=== PATIENT | female | born 1950 | race Caucasian/White ===

== ENCOUNTER → 2016-07-07 | Outpatient (CLI) | payer MEDICARE, MEDICAID | LOC: BFHH 14:20 | PROVIDERS: ATTEND Family Medicine | DX: E11.42 Type 2 diabetes mellitus with diabetic polyneuropathy (principal) ==

== ENCOUNTER → 2016-08-17 | Outpatient (CLI) | payer MEDICARE, MEDICAID ==
--- NOTE | 2016-08-17 10:14 | CT ---
EXAM DESCRIPTION: Chest w/Contrast CLINICAL HISTORY: 66 years Female, MALIGNANT NEOPLASM PYLORIC ATRIUM TECHNIQUE: After the administration of IV contrast thin slice imaging was performed of the abdomen and pelvis. FINDINGS: The liver, gallbladder, portal vein are unremarkable. The spleen is at the upper limits of normal measuring 12.6 cm in diameter. Bilateral adrenal glands, bilateral kidneys and the pancreas are unremarkable. There is an epigastric anterior abdominal wall hernia noted which contains a loop of small bowel. No evidence of obstruction. There is a fat-containing umbilical hernia noted. Patient is status post hysterectomy. IMPRESSION: 2 midline abdominal wall hernias. The most cephalad midline abdominal wall hernia contains a single loop of bowel. There is no evidence of obstruction on today's study. No lymphadenopathy noted on today's exam to suggest metastatic disease of the abdomen or pelvis. Please see separately dictated CT of the chest for information above the diaphragm. Electronically signed by: Saman Geller MD 08/17/2016 10:12 AM CDT
--- NOTE | 2016-08-18 11:34 | CT ---
EXAM DESCRIPTION: Abdomen/Pelvis w/wo Contrast CLINICAL HISTORY: 66 years,Female,MALIGNANT NEOPLASM PYLORIC ATRIUM COMPARISON: None TECHNIQUE: Multiple axial tomographic images were obtained of the abdomen and pelvis with and without IV contrast and no oral contrast. Then reconstructed in sagittal and coronal planes. FINDINGS: The kidneys are unremarkable The adrenal glands are unremarkable. The spleen is unremarkable. The liver is unremarkable. The pancreas is unremarkable. The gallbladder is unremarkable. The included bowel is demonstrates a resection of the distal stomach. Another anastomosis in the left abdomen of small bowel. And there is a midline abdominal wall hernia just above the umbilicus containing loops of small bowel but nonobstructing at this time. The opening is about 3.7 cm. There is no free air, free fluid, masses, or significant adenopathy. Surrounding soft tissues and bony elements unremarkable. Uterus and ovaries not seen presumed to be surgically absent and or atrophic. IMPRESSION: Midline anterior abdominal wall hernia supraumbilical containing loops of small bowel but nonobstructive at this time. Prior antrectomy. Electronically signed by: Jessee Kong MD 08/18/2016 11:33 AM CDT
== END | disposition home or self-care (01) ==
LOC: CT 08:44
PROVIDERS: ATTEND Internal Medicine Hematology & Oncology
DX: C16.3 Malignant neoplasm of pyloric antrum (principal)

== ENCOUNTER → 2016-09-14 | Outpatient (CLI) | payer MEDICARE ==
--- NOTE | 2016-09-14 12:27 | RAD ---
EXAM DESCRIPTION: Pelvis CLINICAL HISTORY: 66 years Female, RT HIP PAIN IMPRESSION: Single view of the pelvis reveals mild degenerative change of the left hip. The pelvic ring is intact with no evidence of a definitive fracture. Arcuate lines are intact. Electronically signed by: Saman Geller MD 09/14/2016 12:27 PM CDT
--- NOTE | 2016-09-14 12:31 | RAD ---
EXAM DESCRIPTION: Knee,Right Complete CLINICAL HISTORY: 66 years, Female, RT KNEE PAIN COMPARISON: None. FINDINGS: No fracture. Medial joint compartment completely lost with sclerosis and subchondral cystic changes. Slight lateral subluxation of the femur probably related to severe degenerative changes. Patellofemoral joint space narrowed with spurring. Bones appear mildly demineralized. IMPRESSION: Severe degenerative change particularly medial joint compartment. No fracture or dislocation Electronically signed by: Shahram Romo MD 09/14/2016 12:31 PM CDT
== END | disposition home or self-care (01) ==
LOC: RAD 07:53
PROVIDERS: ATTEND Orthopaedic Surgery
DX: M25.561 Pain in right knee (principal); M25.551 Pain in right hip

== ENCOUNTER → 2016-10-27 | Outpatient (CLI) | payer MEDICARE | END | disposition home or self-care (01) | LOC: BFHH 13:06 | PROVIDERS: ATTEND Family Medicine | DX: E11.42 Type 2 diabetes mellitus with diabetic polyneuropathy (principal) ==

== ENCOUNTER → 2016-11-16 | Outpatient (CLI) | payer MEDICARE | END | disposition home or self-care (01) | LOC: LAB.O 12:25 | PROVIDERS: ATTEND Orthopaedic Surgery | DX: Z01.818 Encounter for other preprocedural examination (principal) ==

== ENCOUNTER 2016-12-15 06:03 | Inpatient (IN) | payer MEDICARE ==
--- NOTE | 2016-12-08 07:59 | HP ---
CHIEF COMPLAINT: Right knee pain. HISTORY OF PRESENT ILLNESS: Nataliya is a 66-year-old female with a history of pain in her right knee that has been present for many years. She has had attempts at conservative measures, however, has failed to gain relief. She actually had knee arthroscopy done as well and had that done about 19 years ago. She denies any trauma or radiation of pain. At this point, because of her failure of conservative measures, she has requested operative intervention. After discussing the risks, benefits and alternatives to that, the patient has given informed consent for total knee arthroplasty. PAST SURGICAL HISTORY: 1. Hysterectomy. 2. Mastectomy. 3. Knee arthroscopy. MEDICATIONS: 1. Insulin. 2. Celebrex. 3. Methimazole. 4. Brintellix. 5. Ambien. 6. Requip. 7. Carvedilol. 8. Protonix. 9. Januvia. 10. Farxiga. 11. Furosemide. 12. Potassium. ALLERGIES: TETANUS, CODEINE. CODE STATUS: DNR. IMMUNIZATIONS: Up to date. SOCIAL HISTORY: The patient does not drink, smoke or use any illicit drugs. FAMILY HISTORY: None pertinent to today's complaint. REVIEW OF SYSTEMS: Negative except as indicated in the History of Present Illness. PHYSICAL EXAMINATION: VITAL SIGNS: Blood pressure 137/80. Pulse 83. Height 5'7". Weight 230. MENTAL STATUS: The patient is awake, alert, and is able to give a good history and participate in the physical. The patient is oriented to person, place and time. SKIN: Normal tone and turgor. HEENT: Normocephalic, atraumatic. Pupils equal, round and reactive. Mucosal membranes are moist. NECK: Normal range of motion. No thyromegaly, no lymphadenopathy. CHEST: Normal respiratory excursion. CARDIAC: Regular rate and rhythm. No murmurs, rubs or gallops. MUSCULOSKELETAL: The bilateral upper extremities show full active range of motion without pain. She has intact sensation in the extremities and they are warm and well perfused. She has 5/5 strength throughout. There are no deformities. The left lower extremity shows full range of motion of the hip and knee without significant discomfort. She has no significant crepitus. The extremity is warm and well perfused. The right lower extremity shows full range of motion of the hip, but the knee has range of motion from 0 to about 95 degrees today. She has no varus/valgus or anterior/posterior laxity, but does have a slight varus deformity. It is warm and well perfused. Strength is 5/5. She has a mild to moderate effusion. IMAGING: X-rays show severe arthritis. ASSESSMENT: 1. Osteoarthritis. PLAN: The plan at this point is for total knee arthroplasty. We have discussed the risks, benefits, and alternatives to that and the patient has given informed consent. #[id number] [facility]
[~2016-12-15 06:03] MED LIST: LACTATED RINGERS 1,000 ML ONE; SODIUM CHL 0.9% 100ML MINI-BAG 100 ML IVPB ONE; SODIUM CHLORIDE 0.9% 100ML 100 ML IVPB ONE; SODIUM CHLORIDE 0.9% 250ML 250 ML ONE; TRANEXAMIC ACID 1,000 MG/10 ML VIAL ONE; VANCOMYCIN HCL INJ 1,000 MG VIAL IVPB ONE; ceFAZolin SODIUM 1 GM VIAL ONE
[2016-12-15] MEDS ORDERED: MORPHINE SULF *EPIDURAL* 1 MG/ML VIAL INJ ONE (06:20)
[2016-12-15] MEDS ORDERED: fentaNYL CITRATE INJ 50 MCG/ML AMP IV ONE (06:20)
[2016-12-15] MEDS ORDERED: BUPIVACAINE 0.25% W/EPI 50 ML VIAL INJ ONE (06:34)
[2016-12-15] MEDS ORDERED: VANCOMYCIN HCL INJ 1,000 MG VIAL IVPB ONE ×2 (06:35→19:27)
[2016-12-15] MEDS ORDERED: ceFAZolin SODIUM 1 GM VIAL ONE (06:35)
[2016-12-15] MEDS ORDERED: HEPARIN SODIUM 100 U/ML 5 ML SYG IV ONE (06:48)
[2016-12-15] MEDS ORDERED: HYDROcodone 5MG/APAP 325MG 1 EA TAB PO PRN (06:50)
[2016-12-15] MEDS ORDERED: BENZOCAINE-MENTH LOZ (CEPACOL) 1 EA LOZ MT PRN (06:50)
[2016-12-15] MEDS ORDERED: ALUMINUM & MAGNESIUM HYDROXIDE 30 ML UD PO PRN (06:50)
[2016-12-15] MEDS ORDERED: ACETAMINOPHEN 500 MG TAB PO PRN (06:50)
[2016-12-15] MEDS ORDERED: MORPHINE SULFATE INJ 10 MG/ML VIAL IM PRN (06:50)
[2016-12-15] MEDS ORDERED: TRANEXAMIC ACID INJ 1,000 MG in SODIUM CHLORIDE 0.9% 100ML 100 ML IVPB ONE (06:50)
[2016-12-15] MEDS ORDERED: HYDROcodone 10MG/APAP 325MG 1 EA TAB PO PRN (06:50)
[2016-12-15] MEDS ORDERED: SODIUM CHLORIDE 0.9% (FLUSH) 10 ML SYG IV PRN (06:50)
[2016-12-15] MEDS ORDERED: PROMETHAZINE HCL INJ 25 MG in SODIUM CHLORIDE 0.9% 50ML 50 ML IVPB PRN (06:50)
[2016-12-15] MEDS ORDERED: BISACODYL SUPPOSITORY 10 MG PR PRN (06:50)
[2016-12-15] MEDS ORDERED: DEX 5% W/NACL 0.45% 1000ML 1,000 ML IVS PRN (06:50)
[2016-12-15] MEDS ORDERED: NALOXONE HCL INJ 0.4 MG/ML VIAL IV PRN (06:50)
[2016-12-15] MEDS ORDERED: ACETAMINOPHEN 325 MG TAB PO PRN (06:50)
[2016-12-15] MEDS ORDERED: MORPHINE SULFATE INJ 10 MG/ML VIAL IV PRN (06:50)
[2016-12-15] MEDS ORDERED: TEMAZEPAM 15 MG CAP PO PRN (06:50)
[2016-12-15] MEDS ORDERED: PROMETHAZINE HCL INJ 12.5 MG in SODIUM CHLORIDE 0.9% 50ML 50 ML IVPB PRN (06:50)
[2016-12-15] MEDS ORDERED: ONDANSETRON INJ 4 MG/2 ML VIAL IV PRN (06:50)
[2016-12-15] MEDS ORDERED: ZOLPIDEM TARTRATE 5 MG TAB PO PRN (06:50)
[2016-12-15] MEDS ORDERED: MAGNESIUM HYDROXIDE 30 ML UD PO PRN (06:50)
[2016-12-15] MEDS ORDERED: TRANEXAMIC ACID 1,000 MG/10 ML VIAL ONE (06:52)
[2016-12-15] MEDS ORDERED: MORPHINE PCA 1 MG/ML 100ML 1 BAG in PREMIX BAG 1 BAG IVPB SCH (07:00)
[2016-12-15] MEDS ORDERED: LACTATED RINGERS 1,000 ML ONE (08:55)
[2016-12-15] MEDS ORDERED: MORPHINE PCA 1 MG/ML 100 ML BAG IVPB ONE (09:06)
[2016-12-15] MEDS ORDERED: SODIUM CHLORIDE 0.45% 1000ML 1,000 ML IVS PRN (09:19)
[2016-12-15] MEDS: IV SET AND CAP CHANGE INJ INJ SCH (10:20)
[2016-12-15] MEDS ORDERED: METOCLOPRAMIDE HCL INJ 10 MG/2 ML VIAL IV ONE (12:00)
[2016-12-15] MEDS ORDERED: PROPOFOL 200 MG/20 ML VIAL IV ONE (12:00)
[2016-12-15] MEDS ORDERED: ONDANSETRON INJ 4 MG/2 ML VIAL IV ONE (12:00)
[2016-12-15] MEDS ORDERED: PROMETHAZINE HCL INJ 25 MG/ML VIAL ONE (13:27)
[2016-12-15] MEDS ORDERED: SODIUM CHLORIDE 0.9% 50ML 50 ML ONE (13:27)
[2016-12-15] MEDS: MAGNESIUM OXIDE 400 MG TAB PO SCH (13:37)
--- NOTE | 2016-12-15 14:16 | RAD ---
EXAM DESCRIPTION: Knee,Right 2 or More Views right knee CLINICAL HISTORY: 66 years, Female, TKA COMPARISON: September 14 FINDINGS: Total knee replacement has been performed since the prior examination. Near-anatomic alignment. Soft tissue changes anterior to the knee consistent with the recent procedure. IMPRESSION: Satisfactory appearance following total knee arthroplasty Electronically signed by: Shahram Romo MD 12/15/2016 2:15 PM CDT
[2016-12-15] MEDS ORDERED: GLUCAGON INJ 1 MG VIAL SUBCU PRN (14:18)
[2016-12-15] MEDS ORDERED: DEXTROSE 50% 25 GM/50 ML SYG IV PRN (14:18)
--- NOTE | 2016-12-15 14:50 | CONS ---
DATE OF CONSULTATION: 12/15/16 HISTORY OF PRESENT ILLNESS: This 66-year-old, white female was admitted to the hospital earlier this morning for an elective orthopedic procedure to replace the right knee. The patient has been having worsening pain especially in the right knee for the last 14 years. No significant history of injuries is noted. She has failed outpatient management and is now requiring orthopedic surgical intervention to assist with symptom control. She has had a history of diabetes mellitus since 2002 at the same time she was diagnosed with a left breast cancer malignant and spreading to about half of her lymph nodes removed at the time of the modified radical mastectomy. Since that time, she has been on some insulin as well as oral hypoglycemic agents. She is followed closely in the clinic by Dr. Portillo. Her last hemoglobin A1c was three weeks ago and was 6.6. The patient tolerated her right total knee arthroplasty performed earlier this morning by Dr. Perez and is now to initiate and begin physical therapy and orthopedic supervised rehabilitation to get her to the point where she will safe be able to return home. PAST MEDICAL HISTORY: 1. Chronic obstructive pulmonary disease from secondhand smoke. 2. Diabetes mellitus, on insulin therapy for the last 14 years. 3. Breast cancer having been removed 14 years ago. 4. Hyperthyroid. PAST SURGICAL HISTORY: 1. Left mastectomy performed in 2002. 2. Right total knee arthroplasty performed earlier today. 3. Hysterectomy in 1997. 4. Appendectomy years ago. 5. Stomach cancer excised in 2014. CURRENT MEDICATIONS: 1. Celebrex 200 mg b.i.d. 2. Toujeo indulin 35 units at bedtime. 3. Probiotic at bedtime. 4. Ambien 10 mg at bedtime. 5. Coreg 12.5 mg b.i.d. 6. Farxiga 5 mg at bedtime. 7. Breo 1 inhalation daily. 8. Tapazole 10 mg b.i.d. 9. Protonix 40 mg daily. 10. Requip 0.5 mg at bedtime. 11. Januvia 100 mg daily. ALLERGIES: CODEINE, TETANUS. FAMILY HISTORY: Positive for multiple problems including strokes, hypertension , heart attacks, cancer. 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 She does not smoke, but she has been exposed to secondhand as a younger person. REVIEW OF SYSTEMS: GENERAL: No significant weight change, fever or chills. HEENT: No hearing or visual disturbances. LUNGS: Mild shortness of breath upon exertion, but no cough or hemoptysis. CARDIOVASCULAR: No palpitations or chest pains. GASTROINTESTINAL: Appetite is fair. No bleeding in emesis or stools. GENITOURINARY: No dysuria. EXTREMITIES: Pain especially noted in the right knee for the last 14 years. NEUROLOGIC: No focal weaknesses noted. PHYSICAL EXAMINATION: VITAL SIGNS: Afebrile. Pulse 84. Blood pressure 148/85. Pulse oximetry 92% on 2 liters. Weight 107.8 kg. GENERAL: The patient is awake, alert, oriented and communicative. Fairly good historian. HEENT: Unremarkable. NECK: Supple with no adenopathy. LUNGS: Clear. CARDIOVASCULAR: Heart tones are regular without any significant gallops. ABDOMEN: Soft with no organomegaly, masses or tenderness. EXTREMITIES: Right knee is in an ice blanket with no significant drainage coming through the dressings from her recent surgery by Dr. Perez. NEUROLOGIC: No focal neurological deficits are noted. The patient is otherwise awake, alert and oriented and moving all extremities. LABORATORY: The only laboratory studies are urinalysis with glycosuria performed earlier today as well as fasting glucose of 144. Preoperative laboratory and x-rays are requested and results pending. ASSESSMENT: 1. Immediate postoperative day 0 right total knee arthroplasty. 2. Advanced osteoarthritis with symptoms of right knee pain failing outpatient therapy and requiring surgical intervention to assist with symptom control. 3. Diabetes mellitus, on insulin and oral therapy. 4. History of hyperthyroidism on oral medications for control. 5. Chronic obstructive pulmonary disease. 6. History of restless legs. 7. Chronic insomnia. 8. History of methicillin-resistant Staphylococcus aureus positive surveillance nasal culture. 9. History of breast cancer in 2002, surgically excised with modified radical mastectomy. 10. Stomach cancer excised 2 years ago in 2014. PLAN: The patient is admitted to the hospital postoperatively for continued rehabilitation to get her stronger and able to care for herself so that she will be able to safely return home. Close observation of her diabetes with sliding scale and to be notified in the evening of her h.s. blood sugar so that a dose of evening long-acting insulin can be provided for continued control. Close observation is necessary. #[id number] [facility]
[2016-12-15] MEDS ORDERED: IBUPROFEN 400 MG TAB PO PRN (15:50)
[2016-12-15] MEDS ORDERED: ceFAZolin SODIUM 2 GM in SODIUM CHLORIDE 0.9% 100ML 100 ML IVPB SCH (16:00)
[2016-12-15] MEDS ORDERED: CEFAZOLIN SODIUM 2 GRAM IV 50 ML IVPB ONE ×2 (17:06→19:39)
[2016-12-15] MEDS: CEFAZOLIN SODIUM 2 GRAM IV 2 GM in PREMIX BAG 1 BAG IVPB SCH (17:07)
[2016-12-15] MEDS: INSULIN LISPRO 100 UNITS/ML PEN SUBCU SCH ×2 (19:25→21:35)
[2016-12-15] MEDS ORDERED: SODIUM CHLORIDE 0.9% 250ML 250 ML ONE (19:26)
[2016-12-15] MEDS: VANCOMYCIN HCL INJ 1,000 MG in SODIUM CHLORIDE 0.9% 250ML 250 ML IVPB SCH (19:32)
[2016-12-15] MEDS ORDERED: CARVEDILOL 12.5 MG TAB ONE (19:38)
[2016-12-15] MEDS ORDERED: ENOXAPARIN SODIUM 30 MG/0.3 ML SYG SUBCU ONE (19:39)
[2016-12-15] MEDS ORDERED: PANTOPRAZOLE SODIUM TAB 40 MG PO ONE (19:39)
[2016-12-15] MEDS ORDERED: DOCUSATE CALCIUM 240 MG CAP ONE (19:39)
[2016-12-15] MEDS: DOCUSATE CALCIUM 240 MG CAP PO SCH (20:54)
[2016-12-15] MEDS: ENOXAPARIN SODIUM 30 MG/0.3 ML SYG SUBCU SCH (20:54)
[2016-12-15] MEDS: CARVEDILOL 12.5 MG TAB PO SCH (20:55)
[2016-12-15] MEDS: DAPAGLIFLOZIN PROPANEDIOL 5 MG PO SCH ×2 (20:59→21:21)
[2016-12-16] MEDS: CEFAZOLIN SODIUM 2 GRAM IV 2 GM in PREMIX BAG 1 BAG IVPB SCH ×2 (00:12→07:51)
[2016-12-16] MEDS: traMADol HCL 50 MG TAB PO PRN ×3 (02:50→20:57)
[2016-12-16] MEDS ORDERED: VANCOMYCIN HCL INJ 1,000 MG VIAL IVPB ONE (03:45)
[2016-12-16] MEDS ORDERED: SODIUM CHLORIDE 0.9% 250ML 250 ML ONE (03:45)
[2016-12-16] MEDS: CYCLOBENZAPRINE HCL 10 MG TAB PO PRN (05:15)
[2016-12-16] MEDS: VANCOMYCIN HCL INJ 1,000 MG in SODIUM CHLORIDE 0.9% 250ML 250 ML IVPB SCH (05:17)
[2016-12-16] MEDS: PANTOPRAZOLE SODIUM TAB 40 MG PO SCH (06:19)
[2016-12-16] MEDS ORDERED: CEFAZOLIN SODIUM 2 GRAM IV 50 ML IVPB ONE (07:27)
[2016-12-16] MEDS ORDERED: SITagliptin 50 MG TAB PO ONE (07:27)
[2016-12-16] MEDS: INSULIN LISPRO 100 UNITS/ML PEN SUBCU SCH ×3 (07:50→16:55)
--- NOTE | 2016-12-16 08:07 | OP ---
DATE OF PROCEDURE: 12/15/16 PREOPERATIVE DIAGNOSIS: 1. Right knee osteoarthritis. POSTOPERATIVE DIAGNOSIS: 1. Right knee osteoarthritis. PROCEDURE: 1. Right total knee arthroplasty. SURGEON: Ramez Perez MD. BICYCLE II ASSEMBLER: Walter Dawn CST, SA-C. ANESTHESIA: General. COMPLICATIONS: None. FINDINGS: Severe arthritis with varus deformity. INDICATION: Ms. Mcknight has a long history of severe knee pain for which she has failed conservative measures. Because of the failure of conservative measures, she has requested operative intervention. After discussing the risks , benefits and alternatives to operative intervention for this condition, the patient has given informed consent for total knee arthroplasty. PROCEDURE: The patient was brought to the Operating Room and placed in supine position. General anesthesia was induced and the patient's leg was sterilely prepped and draped. Following prepping and draping, the distal femur was exposed and using an intramedullary guide, the distal femoral cut was made. The appropriate sized cutting block was measured, pinned into place, and the anterior, posterior, and chamfer cuts were made. The ACL was transected and the tibia was subluxed. Both the medial and lateral menisci were removed. An intramedullary guide was used to make the proximal tibial cut. The appropriate sized base plate was placed and a trial polyethylene was placed. The trial femur was placed, the knee was reduced, and the knee was taken through a range of motion. The knee was stable in anterior, posterior, varus and valgus stress. The patella tracked anatomically without evidence of subluxation or dislocation. After trialing, the trial components were removed and the bony surfaces were thoroughly irrigated with saline. Following irrigation, the surfaces were dried and the final components were cemented into place. The excess cement was removed and the remaining cement was allowed to cure. The knee was again taken through a range of motion to confirm stability. The wound was then irrigated with saline and closure was performed using PDS to approximate the arthrotomy followed by closure of the subcutaneous tissues with a combination of running and interrupted Monocryl sutures. Sterile dressing was placed. The patient was awoken from anesthesia and taken to Recovery. POSTOPERATIVE INSTRUCTIONS: The patient will be weight-bearing as tolerated on postoperative day 1. COMPONENTS: Club W Triathlon knee, size 5 femur, size 5 tibia, 11 mm insert. #[id number] [facility]
[2016-12-16] MEDS: CARVEDILOL 12.5 MG TAB PO SCH ×2 (09:27→20:59)
[2016-12-16] MEDS: MAGNESIUM OXIDE 400 MG TAB PO SCH (09:27)
[2016-12-16] MEDS: SITagliptin 50 MG TAB PO SCH (09:29)
[2016-12-16] MEDS: ENOXAPARIN SODIUM 30 MG/0.3 ML SYG SUBCU SCH ×2 (09:30→21:01)
[2016-12-16] MEDS: NON-FORMULARY MEDICATION 1 EA MIS (Fluticasone Furoate-Vilanterol [Breo Ellipta 100-25 Mcg INH SCH (09:35)
--- NOTE | 2016-12-16 18:43 | PN ---
DATE: 12/16/16 SUPERVISING PHYSICIAN: Allen Rivera M.D. SUBJECTIVE: The patient is in bed having finished with physical therapy now with Iceman in place. She notes that her pain has been fairly well controlled. She has not had any shortness of breath. She has been afebrile. OBJECTIVE: T max 99.0, pulse 83, blood pressure 123/77, respirations 17, satting 94% on nasal cannula at 2 liters at rest. I's and O's show a negative balance of 2819 with 1480 in, 4300 out. Weight 107.8 kg. CHEST: Clear to auscultation, just slightly diminished towards the bases. HEART: Regular rate and rhythm. ABDOMEN: Obese but soft, non-tender. Positive bowel sounds. EXTREMITIES: No clubbing, cyanosis or edema. Right knee has the dressing in place with Iceman. Pulses distally are strong. Capillary refill is brisk. NEUROLOGIC: She is alert and oriented times three. LABORATORY: Postoperative H&H shows hemoglobin 12.2, hematocrit 38.0. MICROBIOLOGY: MRSA surveillance cultures showed preliminary no growth at 48 hours. ASSESSMENT: 1. Postoperative day 1 total right knee arthroplasty. 2. Advanced osteoarthritis with symptoms of right knee pain having failed to respond to outpatient treatment therapy requiring surgical intervention for symptom control. 3. Diabetes mellitus on insulin oral therapy, stable. 4. History of hypothyroidism on oral medications. 5. Chronic obstructive pulmonary disease. 6. History of restless leg syndrome. 7. Chronic insomnia. 8. History of MRSA positive surveillance cultures with current culture showing to be no growth. 9. History of breast cancer in 2002 surgically excised with modified radical mastectomy. 10. Stomach cancer excised 2 years in 2014. PLAN: Will continue to follow the patient as she progresses through her physical therapy efforts. She has home health arranged at time of discharge. Until discharge, will continue to monitor the patient closely and encourage her to deep breathe to prevent any complications postoperatively, and treat appropriately. #[id number] [facility]
[2016-12-16] MEDS: DOCUSATE CALCIUM 240 MG CAP PO SCH (20:57)
[2016-12-16] MEDS: DAPAGLIFLOZIN PROPANEDIOL 5 MG PO SCH (20:59)
[2016-12-17] MEDS: INSULIN LISPRO 100 UNITS/ML PEN SUBCU SCH ×5 (01:26→20:59)
[2016-12-17] MEDS: PANTOPRAZOLE SODIUM TAB 40 MG PO SCH (05:33)
--- NOTE | 2016-12-17 07:49 | PN ---
DATE: 12/16/16 SUBJECTIVE: Ms. Mcknight is doing well and her pain is well controlled right now. OBJECTIVE: Afebrile. Vital signs stable. Dressing is clean, dry and intact. ASSESSMENT: Status post total knee arthroplasty. PLAN: The plan at this point is for her to continue with weight-bearing as tolerated as well as progress the CPM. [facility][id number] [facility]
--- NOTE | 2016-12-17 07:52 | PN ---
DATE: 12/17/16 SUBJECTIVE: Ms. Mcknight is doing well. She is up of the bed to the chair already. OBJECTIVE: Afebrile. Vital signs stable. Wound is clean. There are no signs or symptoms of infection. ASSESSMENT: Status post total knee arthroplasty. PLAN: The plan at this point is for her to continue weight-bearing as tolerated. We will discharge her when she has met all goals. #[id number] [facility]
[2016-12-17] MEDS: MAGNESIUM OXIDE 400 MG TAB PO SCH (08:18)
[2016-12-17] MEDS: SITagliptin 50 MG TAB PO SCH (08:18)
[2016-12-17] MEDS: CARVEDILOL 12.5 MG TAB PO SCH ×2 (08:21→20:42)
[2016-12-17] MEDS: ENOXAPARIN SODIUM 30 MG/0.3 ML SYG SUBCU SCH ×2 (08:23→20:42)
[2016-12-17] MEDS: SODIUM CHLORIDE 0.9% (FLUSH) 10 ML SYG IV SCH ×2 (08:23→20:59)
[2016-12-17] MEDS: traMADol HCL 50 MG TAB PO PRN ×3 (08:36→19:38)
[2016-12-17] MEDS: NON-FORMULARY MEDICATION 1 EA MIS (Fluticasone Furoate-Vilanterol [Breo Ellipta 100-25 Mcg INH SCH (13:59)
[2016-12-17] MEDS: DOCUSATE CALCIUM 240 MG CAP PO SCH (20:42)
[2016-12-17] MEDS: DAPAGLIFLOZIN PROPANEDIOL 5 MG PO SCH (20:43)
--- NOTE | 2016-12-18 01:40 | PN ---
DATE: 12/17/16 SUPERVISING PHYSICIAN: Allen Rivera M.D. SUBJECTIVE: The patient continues to work well with Physical Therapy. She is currently sitting in the bedside chair. She has been afebrile. She is tolerating her diet. She has had no nausea or vomiting. She remains afebrile. OBJECTIVE: VITAL SIGNS: T max 99.0, pulse 94, blood pressure 130/78, respirations 16, satting 97% on 3 liters nasal cannula at rest. I's and O's show a positive balance of 640 with 1840 in, 1200 out. Weight is 107.8 kg. CHEST: Lungs were clear to auscultation bilaterally. HEART: Regular rate and rhythm. ABDOMEN: Soft, non-tender. Positive bowel sounds. EXTREMITIES: Right knee has dressing in place which is clean and dry. Pulses distally are strong with capillary refill brisk. NEUROLOGIC: She is alert and oriented times three. LABORATORY: No additional laboratory is available. ASSESSMENT: 1. Postoperative day 2 total right knee arthroplasty. 2. Advanced osteoarthritis with symptoms of right knee pain having failed to respond to outpatient treatment therapy requiring surgical intervention for symptom control. 3. Diabetes mellitus on insulin oral therapy, stable. 4. History of hypothyroidism on oral medications. 5. Chronic obstructive pulmonary disease. 6. History restless leg syndrome. 7. Chronic insomnia. 8. History of MRSA positive surveillance cultures with current culture showing no growth. 9. History of breast cancer in 2002 with surgery to excise with modified radical mastectomy. 10. Stomach cancer excised 2 years previously in 2014. PLAN: Will continue to monitor and follow the patient as she progresses through her physical therapy efforts. Once clinically able to be discharged as cleared by Physical Therapy and Dr. Perez, the patient will continue with outpatient treatment plan at this point to be with [facility]. Until discharge, will continue to monitor the patient closely and treat appropriately. [facility][id number] [facility]
[2016-12-18] MEDS: traMADol HCL 50 MG TAB PO PRN ×4 (03:37→19:07)
[2016-12-18] MEDS: PANTOPRAZOLE SODIUM TAB 40 MG PO SCH (05:47)
[2016-12-18] MEDS: INSULIN LISPRO 100 UNITS/ML PEN SUBCU SCH ×4 (07:59→20:59)
[2016-12-18] MEDS ORDERED: LEVALBUTEROL NEBS 0.63 MG/3 ML VIAL NEB ONE (08:54)
[2016-12-18] MEDS: SODIUM CHLORIDE 0.9% (FLUSH) 10 ML SYG IV SCH ×2 (09:07→20:55)
--- NOTE | 2016-12-18 09:07 | PN ---
DATE: 12/18/16 SUBJECTIVE: She is actually already up and walking down the [place]. OBJECTIVE: Afebrile. Vital signs stable. There is a very small amount of serosanguineous drainage out of the most distal portion of the wound. Otherwise , the dressing is clean, dry, and intact. The wound is clean without signs or symptoms of infection. ASSESSMENT: Status post total knee arthroplasty. PLAN: The plan is to continue with weight-bearing as tolerated and progress her CPM today beyond 90 degrees. #[id number] [facility]
[2016-12-18] MEDS: SITagliptin 50 MG TAB PO SCH (09:08)
[2016-12-18] MEDS: MAGNESIUM OXIDE 400 MG TAB PO SCH (09:08)
[2016-12-18] MEDS: ENOXAPARIN SODIUM 30 MG/0.3 ML SYG SUBCU SCH ×2 (09:08→21:36)
[2016-12-18] MEDS: CARVEDILOL 12.5 MG TAB PO SCH ×2 (09:08→20:52)
[2016-12-18] MEDS: NON-FORMULARY MEDICATION 1 EA MIS (Fluticasone Furoate-Vilanterol [Breo Ellipta 100-25 Mcg INH SCH (09:13)
[2016-12-18] MEDS ORDERED: LEVALBUTEROL NEBS 0.63 MG/3 ML VIAL NEB PRN (10:57)
[2016-12-18] MEDS: CYCLOBENZAPRINE HCL 10 MG TAB PO PRN ×2 (11:06→18:25)
[2016-12-18] MEDS: LEVALBUTEROL NEBS 0.63 MG/3 ML VIAL NEB SCH ×2 (16:45→23:30)
[2016-12-18] MEDS: SULFAMET/TRIMETHOPRIM 400/80 1 TAB PO SCH (16:45)
[2016-12-18] MEDS: DAPAGLIFLOZIN PROPANEDIOL 5 MG PO SCH (20:52)
[2016-12-18] MEDS: DOCUSATE CALCIUM 240 MG CAP PO SCH (20:54)
[2016-12-18] MEDS ORDERED: MAGNESIUM HYDROXIDE 30 ML UD PO ONE (21:00)
[2016-12-18] MEDS ORDERED: BISACODYL SUPPOSITORY 10 MG PR ONE (21:00)
[2016-12-18] MEDS: IV SET AND CAP CHANGE INJ INJ SCH (21:02)
--- NOTE | 2016-12-18 21:21 | PN ---
DATE: 12/18/16 SUPERVISING PHYSICIAN: Allen Rivera M.D. SUBJECTIVE: The patient is doing well with her physical therapy. She has had some shortness of breath and desaturations but mild and has been pulling low volumes on her incentive spirometry. She will be reinforced to work with her deep breathing exercises as well. Will start on some low dose Xopenex for breathing treatments. She did have a little bit of serosanguinous drainage from the very distal portion of her incision. Will start her on some Bactrim for that. Dr. Perez is closely monitoring as well. OBJECTIVE: VITAL SIGNS: T max 98.8, pulse 88, blood pressure 124/77, respiratory rate 18, satting 94% on 2 liters nasal cannula. I's and O's show a negative balance of 1420 with 480 in, 1900 out. She has not yet had a bowel movement. CHEST: Lungs are clear but diminished towards the bases. HEART: Regular rate and rhythm. ABDOMEN: Soft, non-tender. Positive bowel sounds. EXTREMITIES: No clubbing, cyanosis or edema. Her right knee has distally a small amount of serosanguinous drainage, otherwise it looks good. Pulses distally were strong with capillary refill brisk. No laboratory. No radiographic studies were completed today. ASSESSMENT: 1. Postoperative day 3 total left leg knee arthroplasty. 2. Advanced arthritis with symptoms of right knee pain having failed to respond to outpatient treatment therapy requiring surgical intervention for symptom control. 3. Diabetes mellitus on insulin oral therapy, stable. 4. History of hypothyroidism on oral medications. 5. Chronic obstructive pulmonary disease. 6. History of restless leg syndrome. 7. Chronic insomnia. 8. History of MRSA positive surveillance cultures with current culture showing no growth. 9. History of breast cancer in 2002 with surgery to excise with modified radical mastectomy. 10. 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 PLAN: Will continue again to follow the patient through her physical therapy efforts. I will start her on Bactrim at the request of Dr. Perez for the drainage on the incision site. Will monitor closely. The patient is still wishing to discharge to [facility]. Physical Therapy is continuing work with the patient hopefully to be able to discharge tomorrow or the next. Until discharge, will continue to monitor the patient closely and treat appropriately. #[id number] [facility]
[2016-12-19] MEDS: CYCLOBENZAPRINE HCL 10 MG TAB PO PRN (05:16)
[2016-12-19] MEDS: traMADol HCL 50 MG TAB PO PRN ×2 (05:16→11:05)
[2016-12-19] MEDS: SULFAMET/TRIMETHOPRIM 400/80 1 TAB PO SCH (05:17)
[2016-12-19] MEDS: PANTOPRAZOLE SODIUM TAB 40 MG PO SCH (05:29)
[2016-12-19] MEDS: INSULIN LISPRO 100 UNITS/ML PEN SUBCU SCH ×2 (08:01→11:40)
[2016-12-19] MEDS: SITagliptin 50 MG TAB PO SCH (08:40)
[2016-12-19] MEDS: MAGNESIUM OXIDE 400 MG TAB PO SCH (08:40)
[2016-12-19] MEDS: CARVEDILOL 12.5 MG TAB PO SCH (08:40)
[2016-12-19] MEDS: SODIUM CHLORIDE 0.9% (FLUSH) 10 ML SYG IV SCH (08:40)
[2016-12-19] MEDS: ENOXAPARIN SODIUM 30 MG/0.3 ML SYG SUBCU SCH (08:41)
[2016-12-19] MEDS: LEVALBUTEROL NEBS 0.63 MG/3 ML VIAL NEB SCH (08:49)
[2016-12-19] MEDS: NON-FORMULARY MEDICATION 1 EA MIS (Fluticasone Furoate-Vilanterol [Breo Ellipta 100-25 Mcg INH SCH (08:49)
[2016-12-19 11:33] VITALS: BP 116/68; TEMP 96; O2SAT 94
--- NOTE | 2016-12-19 12:18 | PN ---
DATE: 12/19/16 SUBJECTIVE: Ms. Mcknight is doing extremely well today. She is ambulating independently. OBJECTIVE: She is afebrile. Vital signs are stable. Wound is clean. There are no signs or symptoms of infection. ASSESSMENT: 1. Status post total knee arthroplasty. PLAN: At this point, she is doing well enough. I think she is safe to be discharged. She has been given appropriate instructions on wound care. She will followup with us in about 2 weeks. She has been instructed to return immediately should any change in her condition occur. #[id number] [facility]
[2016-12-19] MEDS ORDERED: HEPARIN SODIUM 100 U/ML 5 ML SYG IV ONE (14:29)
--- NOTE | 2016-12-22 11:43 | DS ---
SUPERVISING PHYSICIAN: Allen Rivera MD DISCHARGE DIAGNOSIS: 1. Postoperative day 4 total left leg knee arthroplasty. 2. Advanced arthritis with symptoms of right knee pain having failed to respond to outpatient treatment therapy requiring surgical intervention for symptom control. 3. Diabetes mellitus on insulin and oral therapy, stable. 4. History of hypothyroidism on oral medications. 5. Chronic obstructive pulmonary disease. 6. History of restless leg syndrome. 7. Chronic insomnia. 8. History of methicillin-resistant Staphylococcus aureus positive surveillance blood cultures, on this admission showing no growth. 9. History of breast cancer in 2002 with surgery to excise with modified radical mastectomy. 10. 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 HISTORY OF PRESENT ILLNESS: Ms. Mcknight is a 66-year-old, female patient who was admitted to the hospital on 12/15/16 for an elective orthopedic procedure to replace the right knee. The patient had a history of worsening pain especially in the right knee for the last 14 years. No significant history of injuries is noted. She had failed outpatient management and is now requiring orthopedic surgical intervention to assist with symptom control. She has had a history of diabetes mellitus since 2002 at the same time she was diagnosed with a left breast cancer malignant and spreading to about half of her lymph nodes removed at the time of the modified radical mastectomy. Since that time, she has been on some insulin as well as oral hypoglycemic agents. She is followed closely in the clinic by Dr. Portillo. Her last hemoglobin A1c was three weeks ago and was 6.6. The patient tolerated her right total knee arthroplasty performed the morning of 12/15/[address] Perez and was started on physical therapy and orthopedic supervised rehabilitation and followed through hospitalization. LABORATORY: Postoperative hemoglobin and hematocrit were 12.2 and 38.0. Blood sugars were well controlled from 109 to 184. Urinalysis on 12/15/16 showed 500 glucose. Otherwise, within normal limits. Repeat urinalysis on 12/16/16 showed 500 glucose, 80 ketones, trace amount of intact blood, otherwise, within normal limits. MICROBIOLOGY: No specimens other than MRSA surveillance culture submitted showing no growth at 72 hours. RADIOLOGY: No additional studies were done. HOSPITAL COURSE: Ms. Mcknight was admitted for replacement of her right knee and was followed postoperatively. She did well with her physical therapy efforts and had good control of her blood sugars with no complications. She was tolerated a diet. She did have some difficulty with incentive spirometry initially and was initiated on some breathing treatments and did well. It was felt on the morning of discharge on 12/19/16 that she was well enough to be continued in the outpatient treatment setting. The patient had a little bit of serosanguineous at the most distal end of her incision and per Dr. Perez's request , the patient was started on some Bactrim. There were no signs of infection at the time of discharge. PLAN: Ms. Mcknight was discharged to have continuation of her physical therapy and rehabilitation efforts with [facility], which has been arranged. She was to followup with Dr. Perez as scheduled and to follow wound management as instructed per 's directions. She was told to call Dr. Perez' s office should she have any concerning symptoms or worsening symptoms or failure to improve or return to the Emergency Room if needed. At discharge, new prescriptions included: 1. Flexeril 10 mg q.8h. as needed, #15. 2. Xarelto 10 mg for 8 days daily. 3. Bactrim 1 tablet twice daily, #14. Pain medicine provided by Dr. Perez. Diet on discharge is diabetic as tolerated. Activity to utilize walker, weight-bearing as directed and increase activity as per physical therapy. Condition on discharge was improved and stable. #[id number] [facility]
== END 2016-12-19 14:50 | disposition home health service (06) | DRG 470 ==
LOC: AMB 06:03 → MS 10:30
PROVIDERS: ADMIT Orthopaedic Surgery; ATTEND Emergency Medicine
PROC: 0SRC0J9 Replacement of Right Knee Joint with Synthetic Substitute, Cemented, Open Approach (ICD-10-PCS; principal; 2016-12-15 07:00)
DX: M17.11 Unilateral primary osteoarthritis, right knee (principal); E11.9 Type 2 diabetes mellitus without complications; J44.9 Chronic obstructive pulmonary disease, unspecified; E03.9 Hypothyroidism, unspecified; G25.81 Restless legs syndrome; G47.00 Insomnia, unspecified; Z79.4 Long term (current) use of insulin; Z79.1 Long term (current) use of non-steroidal anti-inflammatories (NSAID); Z79.84 Long term (current) use of oral hypoglycemic drugs; Z88.5 Allergy status to narcotic agent; Z88.7 Allergy status to serum and vaccine; Z66 Do not resuscitate; Z85.3 Personal history of malignant neoplasm of breast; Z85.028 Personal history of other malignant neoplasm of stomach; Z86.14 Personal history of Methicillin resistant Staphylococcus aureus infection

== ENCOUNTER → 2017-01-04 | Outpatient (CLI) | payer MEDICARE | END | disposition home or self-care (01) | LOC: GMAB 15:03 | PROVIDERS: ATTEND Family Medicine | DX: I10 Essential (primary) hypertension (principal) ==

== ENCOUNTER → 2017-02-26 | Outpatient (CLI) | payer MEDICARE | LOC: BFHH 12:59 | PROVIDERS: ATTEND Family Medicine | DX: E11.42 Type 2 diabetes mellitus with diabetic polyneuropathy (principal) ==

== ENCOUNTER → 2017-04-21 | Outpatient (CLI) | payer MEDICARE | END | disposition home or self-care (01) | LOC: GMAB 11:18 | PROVIDERS: ATTEND Family Medicine | DX: E05.90 Thyrotoxicosis, unspecified without thyrotoxic crisis or storm (principal) ==

== ENCOUNTER → 2017-07-09 | Outpatient (CLI) | payer MEDICARE, MEDICAID ==
--- NOTE | 2017-07-09 11:13 | CT ---
EXAM DESCRIPTION: Abdomen/Pelvis w/wo Contrast: Computed Tomography. CLINICAL HISTORY: STOMACH CANCER RESTAGING COMPARISON: CT of the abdomen and pelvis 03/10/2016. TECHNIQUE: Spiral-axial scans at 5.0 mm intervals through the abdomen and pelvis before and after standard dose nonionic IV contrast. No oral contrast. Coronal and sagittal 2.0 mm reconstructions. No adverse reactions. Total Exam DLP 2450.79 mGy - cm. This exam was performed according to our departmental CT dose-optimization program which includes automated exposure control, adjustment of the mA and/or kV according to patient size and/or use of iterative reconstruction technique; to reduce radiation dose to as low as reasonably achievable (ALARA). FINDINGS: Lung bases and pleura: Negative. Liver, Stomach, Spleen, Adrenal Glands: Suture material abutting the distal body and antrum and also the junction of the pylorus and duodenum. No gastric obstruction. Wall thickening may be due to lack of expansion. No adjacent soft tissue masses. Other solid organs are unremarkable. Pancreas, Gallbladder, Ducts: Gallbladder visualized. Common duct not dilated. Fatty infiltration of the liver. No enlarged nodes. Kidneys and Ureters: Bilateral symmetric pararenal stranding. Mesentery: No stranding or fascial thickening. No ascites. Aorta: Not dilated. Minimal atherosclerotic calcifications. Small Bowel: Normal caliber with minimal gas and fluid. Mid small bowel herniated in the midline slightly larger than on the prior study but no incarceration or obstruction. Anastomosis in the left upper quadrant with minimal distention and small air-fluid level. No free air or fatty stranding. Similar appearance to prior study. Terminal Ileum/Cecum: TI negative. Appendix not seen. Minimal gas in the cecum. Colon: Diffuse gas and minimal thecal material with minimal redundancy of the transverse colon and splenic flexure. Mild to moderate redundancy of the sigmoid colon. No obstruction Pelvic Organs: Vaginal cuff unremarkable. Ovaries not seen. No fluid in the cul-de-sac. No radiodense stones in the urinary bladder. Spine and Bony Pelvis: Posterior spondylosis T12-L1. Anterior spondylosis in the lower thoracic spine. Abdominal Wall/Back Soft Tissues: Hernia as previously described superior to the umbilicus in the midline linea alba and raphe. Small bowel loops in the hernia but no strangulation or incarceration. Small bilateral fatty inguinal hernias not containing bowel. IMPRESSION: 1. Stomach wall thickened but this may be a result of contraction. No soft tissue mass or fatty stranding around the surgical clips. Minimal dilation of the small bowel anastomotic site but this is stable with no new soft tissue mass or mesenteric stranding. No bowel obstruction. 2. Supraumbilical midline abdominal hernia containing small bowel may be slightly larger. No incarceration or strangulation of small bowel loops. No bowel obstruction. 3. No peritoneal or retroperitoneal soft tissue mass and no peritoneal fluid. Electronically signed by: Walter Bernard MD 07/09/2017 11:12 AM [facility]
== END ==
LOC: CT 08:00
PROVIDERS: ATTEND Internal Medicine Hematology & Oncology
DX: C16.3 Malignant neoplasm of pyloric antrum (principal); K43.9 Ventral hernia without obstruction or gangrene

== ENCOUNTER → 2019-02-07 | Outpatient (CLI) | payer MEDICARE ==
--- NOTE | 2019-02-07 14:59 | RAD ---
EXAM DESCRIPTION: Knee,Left Complete CLINICAL HISTORY: 68 years Female, PAIN IN LEFT KNEE COMPARISON: None. Findings: Obliterated medial compartment with lateral tibial translation. Osteopenia. Tricompartmental osteophytes. No significant joint effusion. No acute fracture or dislocation identified. IMPRESSION: Left knee osteoarthritis with preferential involvement of the medial compartment. Electronically signed by: Morteza Gallagher MD 02/07/2019 2:57 PM CDT
--- NOTE | 2019-02-07 15:01 | RAD ---
EXAM DESCRIPTION: Pelvis CLINICAL HISTORY: 68 years Female, PAIN IN LEFT HIP COMPARISON: September 14, 2016 FINDINGS: Single AP view the pelvis shows no displaced left hip or other pelvic fracture. Degenerative calcifications in both hips without significant joint space narrowing. The soft tissues are unremarkable. IMPRESSION: Degenerative changes in both hips without acute left hip or other pelvic abnormality. Electronically signed by: Carl Paulino MD 02/07/2019 2:59 PM CDT
== END ==
LOC: RAD 08:07
PROVIDERS: ATTEND Orthopaedic Surgery
DX: M17.12 Unilateral primary osteoarthritis, left knee (principal); M16.0 Bilateral primary osteoarthritis of hip

== ENCOUNTER → 2019-03-06 | Outpatient (CLI) | payer MEDICARE | LOC: LAB.O 09:49 | PROVIDERS: ATTEND Orthopaedic Surgery | DX: Z01.818 Encounter for other preprocedural examination (principal) ==

== ENCOUNTER 2019-03-21 05:49 | Inpatient (IN) | payer MEDICARE ==
--- NOTE | 2019-03-13 10:07 | HP ---
CHIEF COMPLAINT: Left knee pain. HISTORY OF PRESENT ILLNESS: Nataliya is a 69-year-old female with a history of severe arthritis. She has had arthritis for years and says she has now gotten to the point where it is bothering her on a daily basis and is constant. She says she has pain that is up to a 9 in intensity. She denies any trauma other than a fall that occurred back in January. She has had contralateral knee replacement. Because of her ongoing pain and failure of more conservative measures, she has requested operative intervention. She says that alleviating factors including narcotics and aggravating factors include range of motion and walking. She has associated symptoms of grinding and catching. She has had no previous surgery. She has had x-rays, however, has not had MRI. After discussing the risks, benefits and alternatives to total knee arthroplasty, she has given informed consent. PAST SURGICAL HISTORY: 1. Hysterectomy. 2. Mastectomy. 3. Tonsillectomy. MEDICATIONS: 1. Hydrocodone. 2. Toujeo. 3. Spiriva. 4. Ropinirole. 5. Melatonin. 6. Probiotics. 7. Brio. 8. Alprazolam. PAIN CONTRACT: She is in a pain contract with Dr. Flannery in [place], [place]. ALLERGIES: TETANUS. CODE STATUS: DNR. IMMUNIZATIONS: Up to date. SOCIAL HISTORY: The patient does not smoke or use recreational drugs. She does drink on occasion. FAMILY HISTORY: None pertinent to today's complaint. REVIEW OF SYSTEMS: Negative except as indicated in the History of Present Illness. HEENT: The patient reports no symptoms. RESPIRATORY: The patient reports no symptoms. CARDIOVASCULAR: The patient reports no symptoms. GASTROINTESTINAL: The patient reports no symptoms GENITOURINARY: The patient reports no symptoms. MUSCULOSKELETAL: Negative except as noted in History of Present Illness. SKIN: The patient reports no symptoms. NEUROLOGIC: The patient reports no symptoms. PHYSICAL EXAMINATION: VITAL SIGNS: Blood pressure 148/77. Pulse 98. Height 5'7". Weight 219 pounds. MENTAL STATUS: The patient is awake, alert, and is able to give a good history and participate in the physical. The patient is oriented to person, place and time. SKIN: Normal tone and turgor. HEENT: Normocephalic, atraumatic. Pupils equal, round and reactive. Mucosal membranes are moist. NECK: Normal range of motion. No thyromegaly, no lymphadenopathy. CHEST: Normal respiratory excursion. CARDIAC: Regular rate and rhythm. No murmurs, rubs or gallops. MUSCULOSKELETAL: The bilateral upper extremities show full active range of motion. She has intact sensation throughout and they are warm and well perfused. She has no deformity or malalignment. She has negative belly press maneuver bilaterally. She has negative Neer and negative Alanis. She has full range of motion in the elbows, wrists and digits. The right knee shows full extension with flexion to about 110 degrees. She has a well-healed wound anteriorly from previous total knee arthroplasty. She has intact sensation in the extremity and it is warm and well perfused. She has no varus or valgus malalignment. She has full range of motion in the hip, ankle and digits. The left lower extremity shows full range of motion in the hip. She does have some minor discomfort. She lacks about 5 degrees of extension of the knee. She has flexion to about 115 degrees. She has a slight varus deformity. She has no discernible effusion. Strength is 5/5. Sensation is intact. She has full range of motion in the ankle and digits. RADIOLOGY: My interpretation of the x-rays shows severe osteoarthritis. ASSESSMENT: 1. Osteoarthritis. PLAN: The plan at this point is for total knee arthroplasty. We have discussed the risks, benefits, and alternatives to that and the patient has given informed consent. [facility][id number] [facility]
[2019-03-21] MEDS ORDERED: TRANEXAMIC ACID 1,000 MG/10 ML VIAL ONE ×2 (05:52→05:53)
[2019-03-21] MEDS ORDERED: SODIUM CHL 0.9% 100ML MINI-BAG 100 ML IVPB ONE (05:52)
[2019-03-21] MEDS ORDERED: VANCOMYCIN HCL INJ 1,000 MG VIAL IVPB ONE ×4 (05:52→19:51)
[2019-03-21] MEDS ORDERED: LACTATED RINGERS 1,000 ML ONE ×2 (05:52→10:02)
[2019-03-21] MEDS ORDERED: ceFAZolin SODIUM 1 GM VIAL ONE ×2 (05:53→06:41)
[2019-03-21] MEDS ORDERED: SODIUM CHLORIDE 0.9% 250ML 250 ML ONE ×3 (05:53→19:50)
[2019-03-21] MEDS ORDERED: SODIUM CHLORIDE 0.9% 100ML 100 ML IVPB ONE (05:53)
[2019-03-21] MEDS ORDERED: BUPIVACAINE LIPOSOME 13.3 MG/ML VIAL INJ ONE (06:41)
[2019-03-21] MEDS ORDERED: BUPIVACAINE 0.5% 30 ML VIAL INJ ONE ×2 (06:41→06:56)
[2019-03-21] MEDS ORDERED: HYDROmorphone HCL INJ 2 MG/ML VIAL ONE (06:43)
[2019-03-21] MEDS ORDERED: MIDAZOLAM INJ 5 MG/5 ML VIAL ONE (06:43)
[2019-03-21] MEDS ORDERED: SODIUM CHLORIDE 0.9% 1,000 ML BAG IVS ONE (08:43)
[2019-03-21] MEDS ORDERED: ZOLPIDEM TARTRATE 5 MG TAB PO PRN (09:11)
[2019-03-21] MEDS ORDERED: BISACODYL SUPPOSITORY 10 MG PR PRN (09:11)
[2019-03-21] MEDS ORDERED: PROMETHAZINE HCL INJ 12.5 MG in SODIUM CHLORIDE 0.9% 50ML 50 ML IVPB PRN (09:11)
[2019-03-21] MEDS ORDERED: TEMAZEPAM 15 MG CAP PO PRN (09:11)
[2019-03-21] MEDS ORDERED: MORPHINE SULFATE INJ 10 MG/ML VIAL IV PRN (09:11)
[2019-03-21] MEDS ORDERED: NALOXONE HCL INJ 0.4 MG/ML VIAL IV PRN (09:11)
[2019-03-21] MEDS ORDERED: MORPHINE SULFATE INJ 10 MG/ML VIAL IM PRN (09:11)
[2019-03-21] MEDS ORDERED: ACETAMINOPHEN 500 MG TAB PO PRN (09:11)
[2019-03-21] MEDS ORDERED: ALUMINUM & MAGNESIUM HYDROXIDE 30 ML UD PO PRN (09:11)
[2019-03-21] MEDS ORDERED: ACETAMINOPHEN 325 MG TAB PO PRN (09:11)
[2019-03-21] MEDS ORDERED: DEX 5% W/NACL 0.45% 1000ML 1,000 ML IVS PRN (09:11)
[2019-03-21] MEDS ORDERED: TRANEXAMIC ACID INJ 1,000 MG in SODIUM CHLORIDE 0.9% 100ML 100 ML IVPB ONE (09:11)
[2019-03-21] MEDS ORDERED: MAGNESIUM HYDROXIDE 30 ML UD PO PRN (09:11)
[2019-03-21] MEDS ORDERED: BENZOCAINE-MENTH LOZ (CEPACOL) 1 EA LOZ MT PRN (09:11)
[2019-03-21] MEDS ORDERED: PROMETHAZINE HCL INJ 25 MG in SODIUM CHLORIDE 0.9% 50ML 50 ML IVPB PRN (09:11)
[2019-03-21] MEDS ORDERED: SODIUM CHLORIDE 0.9% (FLUSH) 10 ML SYG IV PRN (09:11)
[2019-03-21] MEDS ORDERED: MORPHINE PCA 1 MG/ML 100 ML BAG IVPB SCH (09:30)
[2019-03-21] MEDS ORDERED: diphenhydrAMINE HCL 50 MG/ML VIAL ONE (09:59)
[2019-03-21] MEDS ORDERED: ONDANSETRON INJ 4 MG/2 ML VIAL IV ONE (10:00)
[2019-03-21] MEDS ORDERED: ePHEDrine SULF 50 MG/ML IV ONE (10:00)
[2019-03-21] MEDS ORDERED: EPINEPHrine HCL AMP 1 MG/ML AMP IVPB ONE (10:00)
[2019-03-21] MEDS ORDERED: DEXAMETHASONE INJ 10 MG/ML VIAL IV ONE (10:00)
--- NOTE | 2019-03-21 10:20 | RAD ---
Frontal and lateral views of the left knee. Indication: TKA Impression: Postsurgical changes of left total knee arthroplasty and patellar resurfacing noted with associated postsurgical changes of the soft tissues. No complicating features identified. Electronically signed by: Frederick Hanks MD 03/21/2019 10:18 AM [facility]
[2019-03-21] MEDS ORDERED: DEXTROSE 50% 25 GM/50 ML SYG IV PRN (11:25)
[2019-03-21] MEDS ORDERED: GLUCAGON INJ 1 MG VIAL SUBCU PRN (11:25)
[2019-03-21] MEDS ORDERED: diphenhydrAMINE HCL 25 MG CAP PO PRN (11:47)
[2019-03-21] MEDS: ONDANSETRON INJ 4 MG/2 ML VIAL IV PRN (12:38)
[2019-03-21] MEDS: LEVALBUTEROL NEBS 1.25 MG/3 ML VIAL NEB SCH ×3 (12:40→23:57)
[2019-03-21] MEDS: INSULIN LISPRO 100 UNITS/ML PEN SUBCU SCH ×3 (12:41→20:47)
[2019-03-21] MEDS: IV SET AND CAP CHANGE INJ INJ SCH (12:42)
[2019-03-21] MEDS ORDERED: ceFAZolin SODIUM 2 GRAMS PREMI 50 ML IVPB ONE ×2 (16:26→19:51)
[2019-03-21] MEDS: ceFAZolin SODIUM 2 GRAMS PREMI 2 GM in PREMIX BAG 1 BAG IVPB SCH (16:28)
[2019-03-21] MEDS: CELECOXIB 100 MG CAP PO SCH (16:32)
[2019-03-21] MEDS: VANCOMYCIN HCL INJ 1,000 MG in SODIUM CHLORIDE 0.9% 250ML 250 ML IVPB SCH (17:16)
[2019-03-21] MEDS ORDERED: SODIUM CHLORIDE 0.45% 1000ML 1,000 ML IVS ONE (19:50)
[2019-03-21] MEDS ORDERED: ENOXAPARIN SODIUM 30 MG/0.3 ML SYG SUBCU ONE (19:51)
[2019-03-21] MEDS ORDERED: SODIUM CHLORIDE 0.45% 1000ML 1,000 ML IVS PRN (20:20)
--- NOTE | 2019-03-21 20:41 | CONS ---
DATE OF CONSULTATION: 03/21/19 SUPERVISING PHYSICIAN: Cullen Kelley M.D. REASON FOR CONSULTATION: Medical management post left knee arthroplasty. HISTORY OF PRESENT ILLNESS: Ms. Mcknight is a 69 year-old female with a history of severe osteoarthritis. She has previously had a knee replacement on the right. She notes that the pain in her left knee over the last year or so has worsened and interfered with her daily activities with living. She has been utilizing pain management and outpatient management, however these methods have failed to produce any significant relief of pain. Given the failure of her outpatient management, she requested operative intervention with a total left knee arthroplasty. She was admitted today for an elective left total knee arthroplasty. She was seen postoperatively. She had no intraoperative complications. She did have a block. At time of exam the patient had good pain control. Her significant history includes arthritis and diabetes. She is in stable condition at time of exam. PAST MEDICAL HISTORY: 1. Chronic obstructive pulmonary disease. 2. Diabetes mellitus type 2 on insulin therapy. 3. Breast cancer having been removed 16 years previously. 4. Hypothyroid. 5. Depression. 6. Restless leg syndrome. PAST SURGICAL HISTORY: 1. Total right knee arthroplasty in 2016. 2. Left mastectomy performed in 2002. 3. Hysterectomy in 1997. 4. Appendectomy. 5. Stomach cancer excised in 2014. CURRENT MEDICATIONS: 1. Requip 1 mg at bedtime. 2. Spiriva 1 puff p.r.n. 3. Januvia 100 mg daily. 4. Protonix 40 mg daily. 5. Toujeo Solostar 24 units at bedtime. 6. [place] 10/325 1 p.r.n. every 4 hours. 7. Breo ellipta 100-25 mcg 1 inhaled at bedtime. 8. Lexapro 10 mg at bedtime. 9. Alprazolam 0.5 mg p.r.n. ALLERGIES: CODEINE AND TETANUS. FAMILY HISTORY: Positive for multiple problems including strokes, hypertension, heart attacks and cancer. 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 She lives in [place], [place]. She currently smokes 1 to 2 cigarettes daily she notes as social. She denies any illicit drugs or alcohol use. REVIEW OF SYSTEMS: CONSTITUTIONAL: No significant weight change. Denies any fever or chills. HEENT: Negative for any headaches, vision changes, sore throat, nasal congestion or ear aches. RESPIRATORY: Does have chronic shortness of breath. Denies any coughing or wheezing. CARDIOVASCULAR: Denies any palpitations, chest pain or syncopal episodes. GASTROINTESTINAL: Denies any nausea, vomiting, diarrhea, constipation or abdominal pains. GENITOURINARY: Denies any dysuria, hematuria or polyuria. EXTREMITIES: As noted in history of present illness. NEUROLOGIC: Denies any ataxia, seizures, vision changes, headaches or other focal deficits. PHYSICAL EXAMINATION: VITAL SIGNS: Temperature 97.7, pulse 95, blood pressure 149/86, respirations 16, satting 98% on nasal cannula at 2 liters at rest. Admission weight 104.3 kg. GENERAL: The patient is resting comfortably. Appears to be in no acute distress. She has an Iceman in place over her left knee. She is alert. HEENT: Tympanic membranes are clear bilaterally. Oropharynx is pink and moist without any lesions. NECK: Supple, non-tender. Full range of motion. No jugular venous distention. CHEST: Lung sounds were clear to auscultation, just slightly diminished towards the bases. No obvious rhonchi, wheezing or rales. HEART: Regular rate and rhythm without appreciable murmurs, gallops, or rubs. ABDOMEN: Obese but soft, non-tender. Positive bowel sounds. EXTREMITIES: Left knee has a bulky dressing in place secured with an Inocencio bandage with an Iceman in place. Distally pulse are strong. Capillary refill is brisk. NEUROLOGIC: She is alert and oriented times three. LABORATORY: Postoperative H&H is pending. Postoperative blood sugar was 194. ASSESSMENT: 1. Immediate postoperative day #0 for left total knee arthroplasty performed by Dr. Ramez Perez. 2. Advanced osteoarthritis with worsening symptoms of the left knee failing outpatient treatment requiring surgical intervention per #1. 3. Diabetes mellitus on insulin therapy. 4. History of hypothyroidism on oral medications for control. 5. Chronic obstructive pulmonary disease without any signs of exacerbation. 6. History of restless leg syndrome on Requip. 7. Chronic insomnia. 8. Past history of breast cancer in 2002 excised with modified radical mastectomy. 9. Stomach cancer excised in 2014. PLAN: The patient will be followed postoperatively as she proceeds through her physical therapy and rehabilitation efforts. I will review her medications and will restart those as appropriate to her care. She will be on insulin sliding scale per protocol. She is on deep venous thrombosis prophylaxis per protocol. The plan at this point is to do inhouse rehabilitation with home health after discharge. Until we can transition her to outpatient management will continue to monitor and treat as needed. #[id number] [facility]
[2019-03-21] MEDS: INSULIN GLARGINE 24 UNIT SC SCH (20:48)
[2019-03-21] MEDS: DOCUSATE CALCIUM 240 MG CAP PO SCH (20:49)
[2019-03-21] MEDS: ESCITALOPRAM 10 MG TAB PO SCH (20:49)
[2019-03-21] MEDS ORDERED: NON-FORMULARY MEDICATION 1 EA MIS (Fluticasone Furoate-Vilanterol [Breo Ellipta 100-25 Mcg IN SCH (21:00)
[2019-03-21] MEDS ORDERED: SODIUM CHLORIDE 0.9% 50ML 50 ML ONE (21:52)
[2019-03-21] MEDS ORDERED: PROMETHAZINE HCL INJ 25 MG/ML VIAL ONE (21:52)
[2019-03-21] MEDS: ENOXAPARIN SODIUM 30 MG/0.3 ML SYG SUBCU SCH (22:19)
[2019-03-22] MEDS: ONDANSETRON INJ 4 MG/2 ML VIAL IV PRN ×2 (01:22→10:50)
[2019-03-22] MEDS: traMADol HCL 50 MG TAB PO PRN ×3 (01:22→19:37)
[2019-03-22] MEDS: CYCLOBENZAPRINE HCL 10 MG TAB PO PRN ×3 (01:22→19:37)
[2019-03-22] MEDS: VANCOMYCIN HCL INJ 1,000 MG in SODIUM CHLORIDE 0.9% 250ML 250 ML IVPB SCH (06:15)
[2019-03-22] MEDS ORDERED: ceFAZolin SODIUM 2 GRAMS PREMI 50 ML IVPB ONE (07:09)
[2019-03-22] MEDS: INSULIN LISPRO 100 UNITS/ML PEN SUBCU SCH ×4 (07:14→21:04)
[2019-03-22] MEDS: CELECOXIB 100 MG CAP PO SCH ×2 (07:16→17:04)
[2019-03-22] MEDS: LEVALBUTEROL NEBS 1.25 MG/3 ML VIAL NEB SCH ×3 (07:55→23:38)
--- NOTE | 2019-03-22 08:09 | RAD ---
PROVIDED CLINICAL HISTORY/REASON FOR EXAM: TKA Findings/impression: One intraoperative fluoroscopic image of a knee arthroplasty Dose: 0.07 mGy Time: 0.9 seconds Electronically signed by: Morteza Gallagher MD 03/22/2019 8:08 AM [facility]
[2019-03-22] MEDS: ceFAZolin SODIUM 2 GRAMS PREMI 2 GM in PREMIX BAG 1 BAG IVPB SCH ×2 (08:16)
[2019-03-22] MEDS: MAGNESIUM OXIDE 400 MG TAB PO SCH (08:16)
[2019-03-22] MEDS: SITagliptin 50 MG TAB PO SCH (08:16)
[2019-03-22] MEDS: PANTOPRAZOLE SODIUM TAB 40 MG PO SCH (08:16)
[2019-03-22] MEDS ORDERED: [UNRECOGNIZED DRUG - OTHER] PO PRN (10:56)
[2019-03-22] MEDS ORDERED: HYDROCODONE PO PRN (10:56)
[2019-03-22] MEDS: ENOXAPARIN SODIUM 30 MG/0.3 ML SYG SUBCU SCH ×2 (11:48→23:11)
[2019-03-22] MEDS: BUDESONIDE NEBS 0.5 MG/2 ML INH NEB SCH ×2 (12:42→20:33)
[2019-03-22] MEDS ORDERED: HYDROcodone 10MG/APAP 325MG 1 EA TAB ONE (13:10)
--- NOTE | 2019-03-22 13:24 | OP ---
DATE OF PROCEDURE: 03/21/19 PREOPERATIVE DIAGNOSIS: 1. Left knee osteoarthritis. POSTOPERATIVE DIAGNOSIS: 1. Left knee osteoarthritis. PROCEDURE: 1. Total knee arthroplasty. SURGEON: Ramez Perez MD. BELLMAN DRIVER: Walter Dawn CST, SA-C. ANESTHESIA: General anesthesia. COMPLICATIONS: None. FINDINGS: Severe osteoarthritis of the knee. INDICATION: Ms. Mcknight has had osteoarthritis for several years. She has attempted conservative measures, however, has failed to gain relief. Because of her failure of relief, she has requested operative intervention. After discussing the risks, benefits and alternatives to that, the patient has given informed consent for total knee arthroplasty. PROCEDURE: The patient was brought to the Operating Room and placed in supine position. General anesthesia was induced and the patient's leg was sterilely prepped and draped. Following prepping and draping, the distal femur was exposed and using an intramedullary guide, the distal femoral cut was made. The appropriate sized cutting block was measured, pinned into place, and the anterior, posterior, and chamfer cuts were made. The ACL was transected and the tibia was subluxed. Both the medial and lateral menisci were removed. An intramedullary guide was used to make the proximal tibial cut. The appropriate sized base plate was placed and a trial polyethylene was placed. The trial femur was placed, the knee was reduced, and the knee was taken through a range of motion. The knee was stable in anterior, posterior, varus and valgus stress. The patella tracked anatomically without evidence of subluxation or dislocation. After trialing, the trial components were removed and the bony surfaces were thoroughly irrigated with saline. Following irrigation, the surfaces were dried and the final components were cemented into place. The excess cement was removed and the remaining cement was allowed to cure. The knee was again taken through a range of motion to confirm stability. The wound was then irrigated with saline and closure was performed using PDS to approximate the arthrotomy followed by closure of the subcutaneous tissues with a combination of running and interrupted Monocryl sutures. Sterile dressing was placed. The patient was awoken from anesthesia and taken to Recovery. COMPONENTS: Keny Triathlon knee, size 4 femur, size 4 tibia, 9 mm insert. POSTOPERATIVE PLAN: The patient will be weight-bearing as tolerated on postoperative day 1. #[id number] [facility]
--- NOTE | 2019-03-22 13:56 | PN ---
SUPERVISING PHYSICIAN: Cullen Kelley MD DATE: 03/22/19 SUBJECTIVE: The patient has been having some nausea associated with the morphine. I did discuss with her changing to oral [place] and she notes that she does well with [place] and tends not to be as nauseated. I did talk with Dr. Perez. He was trying to see if maybe we could give her some dicyclomine, however, this is not on formulary and the patient does not want to pay for a prescription. Therefore, we will go ahead and start her on oral pain management and see if this will control her nausea. She has had no shortness of breath. She does have a little bit of wheezing at times, she says, which is normal for her, but she has been afebrile. She is continuing to do her incentive spirometry. She has no diarrhea, no reported chest pains. OBJECTIVE: GENERAL: The patient is resting comfortably in the bedside chair. CHEST: Lungs are fairly clear to auscultation bilaterally, just with a very faint expiratory wheeze to the bilateral apices. No rales or rhonchi. HEART: Regular rhythm. ABDOMEN: Obese, but soft and nontender. Positive bowel sounds. EXTREMITIES: No edema. NEUROLOGIC: Alert and oriented times three. LABORATORY: Postoperative hemoglobin 11.9 and hematocrit 36.3. Blood sugars are ranging between 144 to 202. ASSESSMENT: 1. Postoperative day #1 for left total knee arthroplasty performed by Dr. Ramez Perez, orthopedic surgeon, secondary to advanced osteoarthritis having failed to respond to outpatient treatment measures. 2. Diabetes mellitus, type 2, on insulin therapy, stable. 3. Postoperative nausea secondary to morphine requiring initiation of oral pain management. 4. History of hypothyroidism on oral medications for control. 5. Chronic obstructive pulmonary disease without any obvious signs of exacerbation. 6. History of restless leg syndrome on Requip. 7. Chronic insomnia. 8. Past history of breast cancer in 2002 excised with modified radical mastectomy. 9. Stomach cancer excised in 2014. PLAN: Given that she is having a degree of nausea postoperatively, we will go ahead and change her to oral pain management to see if this will help. She normally does take [place] at home, . Therefore, we will plan to resume that dosage. I re-started her home medications, but she does not have her Brio, so we will put her on some Pulmicort 0.5 mg b.i.d. until we can get her medicines totally resumed. Again, we will hopefully be able to discharge by Wednesday in anticipation of management with home health physical therapy with discharge planning in process. Until the patient can transition to outpatient management, we will continue to monitor and treat as needed. #[id number] [facility]
[2019-03-22] MEDS: HYDROcodone 10MG/APAP 325MG 1 EA TAB PO PRN ×2 (17:05→21:07)
[2019-03-22] MEDS ORDERED: ALPRAZolam 0.5 MG TAB ONE (21:01)
[2019-03-22] MEDS: ESCITALOPRAM 10 MG TAB PO SCH (21:06)
[2019-03-22] MEDS: INSULIN GLARGINE 24 UNIT SC SCH (21:06)
[2019-03-22] MEDS: DOCUSATE CALCIUM 240 MG CAP PO SCH (21:06)
[2019-03-22] MEDS: ALPRAZolam 0.5 MG TAB PO PRN (21:11)
[2019-03-23] MEDS: HYDROcodone 10MG/APAP 325MG 1 EA TAB PO PRN ×5 (01:13→20:43)
[2019-03-23] MEDS ORDERED: ALPRAZolam 0.5 MG TAB ONE (04:53)
[2019-03-23] MEDS: CYCLOBENZAPRINE HCL 10 MG TAB PO PRN ×2 (04:56→14:32)
[2019-03-23] MEDS: ALPRAZolam 0.5 MG TAB PO PRN (04:56)
[2019-03-23] MEDS: INSULIN LISPRO 100 UNITS/ML PEN SUBCU SCH ×4 (07:35→20:50)
[2019-03-23] MEDS: CELECOXIB 100 MG CAP PO SCH ×2 (07:52→16:25)
[2019-03-23] MEDS: traMADol HCL 50 MG TAB PO PRN (07:53)
[2019-03-23] MEDS: ONDANSETRON INJ 4 MG/2 ML VIAL IV PRN (07:54)
--- NOTE | 2019-03-23 07:55 | PN ---
DATE: 03/21/19 POSTOPERATIVE NOTE SUBJECTIVE: Ms. Mcknight is subjectively doing well and she is not having any pain. OBJECTIVE: Afebrile. Vital signs stable. Dressing is clean, dry and intact. ASSESSMENT: Status post total knee arthroplasty. PLAN: The plan at this point is to begin weightbearing as tolerated on postoperative day #1. [facility][id number] [facility]
--- NOTE | 2019-03-23 07:56 | PN ---
DATE: 03/22/19 SUBJECTIVE: She is doing well. she has well controlled pain. OBJECTIVE: Afebrile. Vital signs stable. She is having some nausea. ASSESSMENT: Status post total knee arthroplasty. PLAN: The plan at this point is for her to begin weightbearing as tolerated. We are going to work on her nausea with Zofran and Phenergan. Morphine will be discontinued. #[id number] [facility]
--- NOTE | 2019-03-23 07:58 | PN ---
DATE: 03/23/19 SUBJECTIVE: She is improved with regards to her nausea. OBJECTIVE: Afebrile. Vital signs stable. Wound is clean. There are no signs or symptoms of infection. ASSESSMENT: Status post total knee arthroplasty. PLAN: The plan at this point is for her to continue with weightbearing as tolerated. #[id number] [facility]
[2019-03-23] MEDS ORDERED: ALPRAZolam 0.25 MG TAB PO PRN (08:46)
[2019-03-23] MEDS: SITagliptin 50 MG TAB PO SCH (09:30)
[2019-03-23] MEDS: ALPRAZolam 0.5 MG TAB PO SCH ×3 (09:31→20:47)
[2019-03-23] MEDS: MAGNESIUM OXIDE 400 MG TAB PO SCH (09:31)
[2019-03-23] MEDS: SODIUM CHLORIDE 0.9% (FLUSH) 10 ML SYG IV SCH ×2 (09:31→20:47)
[2019-03-23] MEDS: LEVALBUTEROL NEBS 1.25 MG/3 ML VIAL NEB SCH ×3 (09:32→23:52)
[2019-03-23] MEDS: BUDESONIDE NEBS 0.5 MG/2 ML INH NEB SCH ×2 (09:32→20:13)
[2019-03-23] MEDS: PANTOPRAZOLE SODIUM TAB 40 MG PO SCH (09:33)
[2019-03-23] MEDS: ENOXAPARIN SODIUM 30 MG/0.3 ML SYG SUBCU SCH ×2 (11:35→22:12)
[2019-03-23] MEDS ORDERED: ALPRAZolam 0.5 MG TAB PO PRN (15:00)
[2019-03-23] MEDS: ESCITALOPRAM 10 MG TAB PO SCH (20:46)
[2019-03-23] MEDS: DOCUSATE CALCIUM 240 MG CAP PO SCH (20:47)
[2019-03-23] MEDS: INSULIN GLARGINE 24 UNIT SC SCH (20:49)
--- NOTE | 2019-03-23 21:11 | PN ---
DATE: 03/23/19 SUPERVISING PHYSICIAN: Cullen Kelley M.D. SUBJECTIVE: The patient is lying in bed asleep. She awakens easily. She has no complaints of nausea, vomiting, diarrhea, constipation or shortness of breath. Her knee does hurt some but it is nothing what she expected. OBJECTIVE: VITAL SIGNS: Temperature 98.2, heart rate 100, blood pressure 158/71, respiratory rate 20, O2 saturation 94% on room air. RESPIRATORY: Essentially clear to auscultation bilaterally. CARDIAC: Regular rate and rhythm. At times she is slightly tachycardic. GASTROINTESTINAL: Abdomen is soft, nondistended, non-tender. Bowel sounds are positive. EXTREMITIES: She has an island dressing to her left knee that is dry and intact. Bilateral pedal pulses are palpable at +2. NEUROLOGIC: She is awake, alert and oriented times three. LABORATORY: Blood sugars have run between 168 and 204. All other labs and films have been reviewed via the EMR. ASSESSMENT: 1. Postoperative day #2 for left total knee arthroplasty performed by Dr. Ramez Perez, orthopedic surgeon, secondary to advanced osteoarthritis having failed to respond to outpatient treatment measures. 2. Diabetes mellitus, type 2, on insulin therapy, stable. 3. Postoperative nausea secondary to morphine requiring initiation of oral pain management. 4. History of hypothyroidism on oral medications for control. 5. Chronic obstructive pulmonary disease without any obvious signs of exacerbation. 6. History of restless leg syndrome on Requip. 7. Chronic insomnia. 8. Past history of breast cancer in 2002 excised with modified radical mastectomy. 9. Stomach cancer excised in 2014. PLAN: We will continue present supportive care. She has had no further nausea since yesterday. Orthopedic issues will be per Dr. Ramez Perez, orthopedic surgeon. She will continue with her physical therapy for strengthening and conditioning. We hope for discharge tomorrow. Will continue to monitor and treat as needed. #[id number] [facility]
[2019-03-24] MEDS: CYCLOBENZAPRINE HCL 10 MG TAB PO PRN (04:23)
[2019-03-24] MEDS: HYDROcodone 10MG/APAP 325MG 1 EA TAB PO PRN ×2 (04:23→11:23)
[2019-03-24 06:24] VITALS: TEMP 98; O2SAT 97
[2019-03-24] MEDS: INSULIN LISPRO 100 UNITS/ML PEN SUBCU SCH (07:25)
[2019-03-24] MEDS: CELECOXIB 100 MG CAP PO SCH (07:27)
[2019-03-24] MEDS: LEVALBUTEROL NEBS 1.25 MG/3 ML VIAL NEB SCH (08:15)
[2019-03-24] MEDS: BUDESONIDE NEBS 0.5 MG/2 ML INH NEB SCH (08:24)
[2019-03-24] MEDS: SITagliptin 50 MG TAB PO SCH (08:36)
[2019-03-24] MEDS: ALPRAZolam 0.5 MG TAB PO SCH (08:37)
[2019-03-24] MEDS: SODIUM CHLORIDE 0.9% (FLUSH) 10 ML SYG IV SCH (08:37)
[2019-03-24] MEDS: PANTOPRAZOLE SODIUM TAB 40 MG PO SCH (08:37)
[2019-03-24] MEDS: IV SET AND CAP CHANGE INJ INJ SCH (08:37)
[2019-03-24] MEDS: MAGNESIUM OXIDE 400 MG TAB PO SCH (08:37)
--- NOTE | 2019-03-24 08:52 | PN ---
DATE: 03/24/19 SUBJECTIVE: She is doing well. Pain is well controlled. OBJECTIVE: Afebrile. Vital signs stable. Wound is clean. There are no signs or symptoms of infection. ASSESSMENT: Status post total knee arthroplasty. PLAN: The plan at this point is for discharge today. [id number]
[2019-03-24] MEDS: ENOXAPARIN SODIUM 30 MG/0.3 ML SYG SUBCU SCH (11:11)
[2019-03-24] MEDS ORDERED: HEPARIN SODIUM 100 U/ML 5 ML SYG IV ONE (11:21)
[2019-03-24 11:57] VITALS: BP 157/78
--- NOTE | 2019-03-24 20:14 | DS ---
SUPERVISING PHYSICIAN: Cullen Kelley M.D. DISCHARGE DIAGNOSIS: 1. Postoperative day #3 for left total knee arthroplasty performed by Dr. Ramez Perez, orthopedic surgeon, secondary to advanced osteoarthritis having failed to respond to outpatient treatment measures. 2. Diabetes mellitus, type 2, on insulin therapy, stable. 3. Postoperative nausea secondary to morphine requiring initiation of oral pain management that has now resolved. 4. History of hypothyroidism on supplementation. 5. Chronic obstructive pulmonary disease without any obvious signs of exacerbation. 6. History of restless leg syndrome on Requip. 7. Chronic insomnia. 8. Past history of breast cancer in 2002 excised with modified radical mastectomy. 9. Stomach cancer excised in 2014. HISTORY OF PRESENT ILLNESS: This is a 69 year-old female patient who has a history of severe osteoarthritis. She had a previous knee replacement on her right side. The pain in her left knee over the last year has worsened and interfered with her daily activities with living. She has utilized pain management and outpatient management, however these methods have failed to produce any significant relief. Given her outpatient management failure, she requested operative intervention for a total left knee arthroplasty per Dr. Ramez Perez, orthopedic surgeon. She was admitted on the day of surgery and she had no intraoperative complications. She did have a block. She was admitted to the Medical/Surgical floor in stable condition. HOSPITAL COURSE: Her home medications were restarted and she did have some post procedure nausea that was felt to be from the morphine. She was switched from her IV morphine to [place]. She was also given some dicyclomine. She continued with her physical therapy for strengthening and conditioning. She progressed through that without any issues. After starting her [place] she had no other problems with nausea and vomiting. At this point she can be discharged home in stable condition. LABORATORY: Hemoglobin and hematocrit remained stable with her postoperative H&H at 11.9 and 36.3. Blood sugars ran from 144 to 207. RADIOLOGY: Reports are per the EMR. DISCHARGE PLAN: The patient will be discharged home in stable condition. She is to resume her previous diet and increase her activity as per physical therapy. She will be discharged to her home in [place]. She will have [facility]. She has a followup appointment with Dr. Ramez Perez on 04/10/19 at 10:30 AM. She is to resume her previous medications. She does have [place] from her pain management doctor that will assist with her pain control at home. In addition to her routine medications, I have also given her a prescription for Cyclobenzaprine and 9 additional days of Xarelto. She is to return to the hospital or followup with Dr. Perez for any problems or complications. DISCHARGE MEDICATIONS: 1. Januvia. 2. Protonix. 3. Breo. 4. Requip. 5. Toujeo. 6. Spiriva. 7. Hydrocodone. 8. Lexapro. 9. Xanax. 10. Cyclobenzaprine. 11. Xarelto. #[id number] [facility]
[2019-03-24] MEDS ORDERED: BISACODYL SUPPOSITORY 10 MG PR ONE (21:00)
[2019-03-24] MEDS ORDERED: MAGNESIUM HYDROXIDE 30 ML UD PO ONE (21:00)
== END 2019-03-24 11:45 | disposition home health service (06) | DRG 470 ==
LOC: AMB 05:49 → MS 10:30
PROVIDERS: ADMIT Orthopaedic Surgery; ATTEND Nurse Practitioner Acute Care
PROC: 0SRD0J9 Replacement of Left Knee Joint with Synthetic Substitute, Cemented, Open Approach (ICD-10-PCS; principal; 2019-03-21 09:30)
DX: M17.12 Unilateral primary osteoarthritis, left knee (principal); R11.0 Nausea; T40.2X5A Adverse effect of other opioids, initial encounter; Y92.230 Patient room in hospital as the place of occurrence of the external cause; J44.9 Chronic obstructive pulmonary disease, unspecified; E11.9 Type 2 diabetes mellitus without complications; E03.9 Hypothyroidism, unspecified; F32.9 Major depressive disorder, single episode, unspecified; G25.81 Restless legs syndrome; G47.00 Insomnia, unspecified; F17.210 Nicotine dependence, cigarettes, uncomplicated; Z96.651 Presence of right artificial knee joint; Z66 Do not resuscitate; Z88.5 Allergy status to narcotic agent; Z88.7 Allergy status to serum and vaccine; Z79.4 Long term (current) use of insulin; Z85.028 Personal history of other malignant neoplasm of stomach; Z85.3 Personal history of malignant neoplasm of breast; Z79.891 Long term (current) use of opiate analgesic